=== PATIENT | male | born 1955 ===

== ENCOUNTER 2018-02-14 04:43 | Emergency (ER) | payer SELFPAY ==
[2018-02-14 04:55] VITALS: TEMP 98
[2018-02-14] MEDS ORDERED: Naproxen 500 MG TAB PO STA (04:57)
[2018-02-14] MEDS ORDERED: Naproxen 500 MG TAB PO ONE (05:08)
--- NOTE | 2018-02-14 05:13 | ED PDOC ---
Lower Extremity Pain/Injury Time Seen by Provider: 02/14/18 04:47 Chief Complaint (Nursing): Anxiety Chief Complaint (Provider): Anxiety and Right Foot Pain History Per: Patient History/Exam Limitations: no limitations Onset/Duration Of Symptoms: Days (x1) Current Symptoms Are (Timing): Still Present Additional Complaint(s): 62 y/o homeless male with a PMHx of anxiety presents to the ED complaining of anxiety and right foot pain. Patient reports of feeling a sense of impending doom for the past day. Patient reports he has not been able to take Clonazepam. Patient states he does not have insurance and is thus unable to follow up with any psychiatric outpatient facility. Patient additionally reports of right foot pain. Patient admits to alcohol use earlier today. Denies drug use, suicidal ideation and homicidal ideation. PMD: No Provider Past Medical History Reviewed: Historical Data, Nursing Documentation, Vital Signs Vital Signs: Last Vital Signs Temp 98 F 02/14/18 04:51 Pulse 80 02/14/18 04:51 Resp 16 02/14/18 04:51 BP 120/72 02/14/18 04:56 Pulse Ox 98 02/14/18 04:51 - Medical History PMH: Anxiety - Surgical History Surgical History: No Surg Hx - Family History Family History: States: Unknown Family Hx - Living Arrangements Living Arrangements: Other (Homless) - Immunization History Hx Tetanus Toxoid Vaccination: No Hx Influenza Vaccination: No Hx Pneumococcal Vaccination: No - Home Medications Home Medications: Ambulatory Orders Medication Instructions Recorded Clonazepam [Klonopin] 0.5 mg PO BID PRN #10 tablet 10/04/15 Naproxen [Naprosyn] 500 mg PO Q12 #14 tab 02/14/18 - Allergies Allergies/Adverse Reactions: Allergies Allergy/AdvReac Type Severity Reaction Status Date / Time No Known Allergies Allergy Verified 02/14/18 04:50 Review of Systems ROS Statement: Except As Marked, All Systems Reviewed And Found Negative Musculoskeletal: Positive for: Foot Pain (right) Psych: Positive for: Anxiety Physical Exam - Reviewed Nursing Documentation Reviewed: Yes Vital Signs Reviewed: Yes - Physical Exam Appears: Positive for: No Acute Distress Head Exam: Positive for: ATRAUMATIC, NORMOCEPHALIC Skin: Positive for: Normal Color, Warm, Dry Eye Exam: Positive for: Normal appearance, EOMI, PERRL Neck: Positive for: Normal, Painless ROM Cardiovascular/Chest: Positive for: Regular Rate, Rhythm. Negative for: Murmur Respiratory: Positive for: Normal Breath Sounds. Negative for: Respiratory Distress Gastrointestinal/Abdominal: Positive for: Normal Exam, Soft. Negative for: Tenderness Extremity: Positive for: Normal ROM. Negative for: Pedal Edema, Deformity Neurologic/Psych: Positive for: Alert, Oriented. Negative for: Motor/Sensory Deficits - ECG O2 Sat by Pulse Oximetry: 98 (RA) Pulse Ox Interpretation: Normal Medical Decision Making Medical Decision Making: Time: 0507 Impression: 62 y/o homeless male with anxiety and unspecified right foot pain. Plan: -- EKG -- Crisis Evaluation as Ordered -- Ativan 1 mg PO -- Naproxen 500 mg PO -- Foot Right 3 Views XR Time: 0557 -- XR results show no acute fracture or dislocation. -- Patient evaluated by crisis and is stable for discharge with a diagnosis of Anxiety and Plantar fasciitis of the right foot. Scribe Attestation: Documented by Stephanie Colbert acting as a scribe for Mark Valverde MD. Provider Scribe Attestation: All medical record entries made by the Scribe were at my direction and personally dictated by me. I have reviewed the chart and agree that the record accurately reflects my personal performance of the history, physical exam, medical decision making, and the department course for this patient. I have also personally directed, reviewed, and agree with the discharge instructions and disposition. Disposition - Clinical Impression Clinical Impression: Anxiety, Plantar fasciitis of right foot - Patient ED Disposition Is Patient to be Admitted: No Counseled Patient/Family Regarding: Studies Performed, Diagnosis, Need For Followup, Rx Given - Disposition Referrals: Podiatry Clinic [Outside] Katie Meza APN [Primary Care Provider] - Disposition Time: 05:57 Condition: STABLE Prescriptions: Naproxen [Naprosyn] 500 mg PO Q12 #14 tab Instructions: Heel Pain (Caused by Plantar Fasciitis), Anxiety, Adult (DC) Forms: [facility] (Citizen Of [place]) Print Language: ROMANSH
[2018-02-14 06:54] VITALS: BP 126/72; PULSE 75; RESP 18; O2SAT 99
--- NOTE | 2018-02-14 08:43 | CARD ---
APPROVED REPORT Date of service: 02/14/2018 <Conclusion> Sinus rhythm with premature atrial complexes Possible Lateral infarct, age undetermined Abnormal ECG
--- NOTE | 2018-02-14 09:03 | RAD ---
Date of service: 02/14/2018 PROCEDURE: Right Foot Radiographs. HISTORY: foot pain COMPARISON: None. FINDINGS: BONES: Bone alignment and mineralization are normal. There is no acute displaced fracture or bone destruction. There is a small plantar calcaneal spur JOINTS: Normal. SOFT TISSUES: Normal. OTHER FINDINGS: None. IMPRESSION: No acute fracture or dislocation.
== END 2018-02-14 06:52 | disposition home or self-care (01) ==
LOC: H.ER 04:43
DX: M72.2 Plantar fascial fibromatosis (principal); F41.9 Anxiety disorder, unspecified; Z59.0 Homelessness

== ENCOUNTER 2018-05-03 16:39 | Emergency (ER) | payer SELFPAY ==
[2018-05-03 16:44] VITALS: TEMP 97.8
[2018-05-03 17:58] LABS: BASO % 0.3 % (0.0-2.0); EOS % 0.6 % (0.0-4.0); HEMOGLOBIN 13.6 g/dL (12.0-18.0); LYMPH # 1.2 K/uL (1.0-4.3); LYMPH % 24.2 % (20.0-40.0); MEAN CORPUSCULAR HEMOGLOBIN 30.4 pg (27.0-31.0); MEAN CORPUSCULAR HGB CONC 34.2 g/dL (33.0-37.0); MEAN PLATELET VOLUME 7.3 fl (7.2-11.7); MONO # 0.4 K/uL (0.0-0.8); MONO % 8.6 % (0.0-10.0); NEUT # 3.2 K/uL (1.8-7.0); NEUT % 66.3 % (50.0-75.0); NRBC % 0.1 % (0.0-0.0); RBC 4.48 Mil/uL (4.40-5.90); RED CELL DISTRIBUTION WIDTH 13.7 % (11.5-14.5); WHITE BLOOD COUNT 4.8 K/uL (4.8-10.8)
[2018-05-03 18:10] LABS: URINE BILIRUBIN NEGATIVE (NEGATIVE); URINE BLOOD SMALL (NEGATIVE); URINE CLARITY CLEAR (Clear); URINE COLOR YELLOW (YELLOW); URINE GLUCOSE (UA) NEG (Normal); URINE LEUKOCYTE ESTERASE NEG Leu/uL (Negative); URINE PROTEIN NEGATIVE (NEGATIVE); URINE UROBILINOGEN 0.2-1.0 mg/dL (0.2-1.0)
[2018-05-03 18:15] LABS: ALB/GLOB RATIO 1.3 (1.0-2.1); ALBUMIN 4.5 g/dL (3.5-5.0); ALT/SGPT 81 U/L (21-72); AST/SGOT 137 U/L (17-59); BLOOD UREA NITROGEN 9 mg/dl (9-20); CALCIUM 9.2 mg/dL (8.4-10.2); GFR NON-AFRICAN AMERICAN > 60
--- NOTE | 2018-05-03 18:15 | ED PDOC ---
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 Limitations: no limitations Onset/Duration Of Symptoms: Days Current Symptoms Are (Timing): Still Present Suicide/Self Injury Attempted (Context): None Past Medical History Reviewed: Historical Data, Nursing Documentation, Vital Signs Vital Signs: Last Vital Signs Temp 97.8 F 05/03/18 16:40 Pulse 100 H 05/03/18 16:40 Resp 18 05/03/18 16:40 BP 127/86 05/03/18 16:40 Pulse Ox 97 05/03/18 16:40 - Medical History PMH: Anxiety, Depression, HTN Denies: Diabetes, Hepatitis, HIV, Seizures, Sexually Transmitted Disease - Family History Family History: States: Unknown Family Hx - Immunization History Hx Tetanus Toxoid Vaccination: No Hx Influenza Vaccination: No Hx Pneumococcal Vaccination: No - Home Medications Home Medications: Ambulatory Orders Medication Instructions Recorded Clonazepam [Klonopin] 0.5 mg PO BID PRN #10 tablet 10/04/15 Escitalopram [Lexapro] 10 mg PO DAILY 02/16/18 Folic Acid 1 mg PO DAILY 02/16/18 Metoprolol Succinate 25 mg PO DAILY 02/16/18 Acetaminophen [Tylenol Extra 2 tab PO Q6 #30 tablet 02/18/18 Strength] DiphenhydrAMINE [Benadryl] 50 mg PO TID PRN #12 cap 02/18/18 - Allergies Allergies/Adverse Reactions: Allergies Allergy/AdvReac Type Severity Reaction Status Date / Time No Known Allergies Allergy Verified 02/18/18 21:50 Review of Systems ROS Statement: Except As Marked, All Systems Reviewed And Found Negative Cardiovascular: Positive for: Chest Pain (right sided lower rib tenderness) Psych: Positive for: Anxiety, Depression Physical Exam - Reviewed Nursing Documentation Reviewed: Yes Vital Signs Reviewed: Yes - Physical Exam Appears: Positive for: Well Head Exam: Positive for: ATRAUMATIC Skin: Positive for: Normal Color ENT: Positive for: Normal ENT Inspection Neck: Positive for: Normal Cardiovascular/Chest: Positive for: Regular Rate, Rhythm, Other (no tenderness over chest wall/ribs) Respiratory: Positive for: Normal Breath Sounds Gastrointestinal/Abdominal: Positive for: Normal Exam Neurologic/Psych: Positive for: Alert, Oriented - Laboratory Results Result Diagrams: 05/03/18 17:55 05/03/18 17:55 - ECG O2 Sat by Pulse Oximetry: 97 Medical Decision Making Medical Decision Making: Pt. well appearing, cooperative. IV access established, labs sent. 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 Disposition - Clinical Impression Clinical Impression: Alcohol intoxication - Patient ED Disposition Is Patient to be Admitted: Transfer of Care ([facility], pending clinical sobriety and crisis eval) - Disposition Disposition: Transfer of Care (to [facility], pending crisis eval) Disposition Time: 20:26 Condition: STABLE Forms: [facility] ([place])
--- NOTE | 2018-05-03 18:16 | RAD ---
Date of service: 05/03/2018 HISTORY: rib pain COMPARISON: No prior. TECHNIQUE: Chest PA and lateral FINDINGS: LUNGS: No active pulmonary disease. PLEURA: No significant pleural effusion identified. No pneumothorax apparent. CARDIOVASCULAR: No aortic atherosclerotic calcification present. Normal cardiac size. No pulmonary vascular congestion. OSSEOUS STRUCTURES: No significant abnormalities. VISUALIZED UPPER ABDOMEN: Normal. OTHER FINDINGS: None. IMPRESSION: No active disease.
[2018-05-03 18:17] LABS: BARBITURATES, UR NEGATIVE (NEGATIVE); BENZODIAZEPINES, UR NEGATIVE (NEGATIVE); OPIATES, UR NEGATIVE (NEGATIVE); PHENCYCLIDINE, UR NEGATIVE (NEGATIVE)
--- NOTE | 2018-05-03 20:19 | ED PDOC ---
- Laboratory Results Result Diagrams: 05/03/18 17:55 05/03/18 17:55 - ECG O2 Sat by Pulse Oximetry: 97 Medical Decision Making Medical Decision Making: Patient endorsed to me by WILL Bennett at 8pm pending sobriety and crisis evaluation. Disposition Discussed With : kD Turner - Clinical Impression Clinical Impression: Alcohol intoxication, Depression - POA Present On Arrival: None - Disposition Disposition: Routine/Home Disposition Time: 21:38 Condition: STABLE Instructions: Depression, Alcohol Abuse and Alcoholism (DC) Forms: [facility] ([place]ian) Print Language: NAURUAN
[2018-05-03 21:39] VITALS: BP 123/82; PULSE 89; RESP 17
[2018-05-03 21:54] VITALS: O2SAT 97
== END 2018-05-03 21:39 | disposition home or self-care (01) ==
LOC: H.ER 16:39
DX: F10.129 Alcohol abuse with intoxication, unspecified (principal); Z86.59 Personal history of other mental and behavioral disorders; I10 Essential (primary) hypertension
CPT/HCPCS: 71046; 80053; 81003; 85025; 99283; G0480